=== PATIENT | female | born 1995 | race Asian ===

== ENCOUNTER 2016-09-16 16:28 | Emergency (ER) | payer OTHER ==
[~2016-09-16] VITALS: Ht 170.2 cm; Wt 56.7 kg
[2016-09-16 16:30] VITALS: TEMP 98.8
[2016-09-16 17:18] LABS: PLATELET COUNT 310 K/uL (152-353)
[2016-09-16 17:24] LABS: POTASSIUM 2.9 mmol/L (3.6-5.2); SODIUM 131 mmol/L (136-145)
[2016-09-16 17:26] VITALS: BP 112/72
== END 2016-09-16 17:27 | disposition home or self-care (01) ==
LOC: ED 16:28
PROVIDERS: Family Medicine
DX: K52.9 Noninfective gastroenteritis and colitis, unspecified (principal); O21.0 Mild hyperemesis gravidarum; E87.6 Hypokalemia
CPT/HCPCS: 80053; 81000; 81025; 85027; 99283

== ENCOUNTER 2016-09-18 17:03 | Emergency (ER) | payer OTHER ==
[~2016-09-18] VITALS: Ht 175.3 cm; Wt 57.6 kg
[2016-09-18 19:03] LABS: SODIUM 133 mmol/L (136-145)
[2016-09-18 19:06] LABS: PLATELET COUNT 305 K/uL (152-353)
[2016-09-18 19:58] VITALS: BP 115/75; TEMP 98.1
== END 2016-09-18 19:58 | disposition home or self-care (01) ==
LOC: ED 17:03
DX: O21.0 Mild hyperemesis gravidarum (principal); E86.9 Volume depletion, unspecified; E86.0 Dehydration; R10.9 Unspecified abdominal pain
CPT/HCPCS: 80053; 85027; 96360; 99284

== ENCOUNTER 2016-10-28 11:55 | Emergency (ER) | payer OTHER ==
[~2016-10-28] VITALS: Ht 170.2 cm; Wt 56.7 kg
[2016-10-28 13:13] LABS: PLATELET COUNT 374 K/uL (152-353)
[2016-10-28 15:21] VITALS: BP 115/68; TEMP 98.6
== END 2016-10-28 15:27 | disposition home or self-care (01) ==
LOC: ED 11:55
PROVIDERS: Emergency Medicine
DX: O34.81 Maternal care for other abnormalities of pelvic organs, first trimester (principal); Z3A.12 12 weeks gestation of pregnancy; R10.2 Pelvic and perineal pain
CPT/HCPCS: 81000; 84702; 85027; 99283

== ENCOUNTER 2017-04-20 08:30 | Outpatient (CLI) | payer OTHER | END 2017-04-20 08:43 | disposition short-term general hospital (02) | LOC: AMB 08:30 | DX: Z39.0 Encounter for care and examination of mother immediately after delivery (principal); Z37.0 Single live birth | CPT/HCPCS: A0425; A0427 ==

== ENCOUNTER 2017-09-19 13:46 | Emergency (ER) | payer OTHER ==
[~2017-09-19] VITALS: Ht 170.2 cm; Wt 56.7 kg
[2017-09-19 14:15] VITALS: TEMP 97.5
[2017-09-19 15:40] LABS: PLATELET COUNT 298 K/uL (152-353); POTASSIUM 3.6 mmol/L (3.6-5.2)
[2017-09-19 16:54] VITALS: BP 120/70
== END 2017-09-19 16:54 | disposition home or self-care (01) ==
LOC: ED 13:46
PROVIDERS: Family Medicine
DX: R31.9 Hematuria, unspecified (principal)
CPT/HCPCS: 80053; 81000; 81025; 85027; 85610; 99283

== ENCOUNTER 2018-07-04 19:29 | Emergency (ER) | payer OTHER ==
[~2018-07-04] VITALS: Ht 170.2 cm; Wt 49.0 kg
[2018-07-04 21:12] VITALS: BP 108/79; TEMP 99
== END 2018-07-04 21:13 | disposition home or self-care (01) ==
LOC: ED 19:29
DX: O21.0 Mild hyperemesis gravidarum (principal)
CPT/HCPCS: 81025; 96372; 99283; J2550

== ENCOUNTER 2020-04-14 00:24 | Emergency (ER) | payer OTHER ==
[~2020-04-14] VITALS: Ht 170.2 cm; Wt 59.0 kg
[2020-04-14 02:16] LABS: PLATELET COUNT 299 K/uL (152-353)
[2020-04-14 02:40] LABS: POTASSIUM 3.7 mmol/L (3.6-5.2)
[2020-04-14 04:49] VITALS: BP 111/69; TEMP 98.6
== END 2020-04-14 04:58 | disposition home or self-care (01) ==
LOC: ED 00:24
PROVIDERS: Emergency Medicine Emergency Medical Services
DX: R55 Syncope and collapse (principal); Z3A.12 12 weeks gestation of pregnancy; J40 Bronchitis, not specified as acute or chronic; Z03.818 Encounter for observation for suspected exposure to other biological agents ruled out; F17.210 Nicotine dependence, cigarettes, uncomplicated
CPT/HCPCS: 36415; 80053; 80307; 81000; 81025; 84702; 85027; 87635; 93005; 96360; 96361; 96365; 99284; J0696; U0003

== ENCOUNTER 2022-06-18 18:03 | Emergency (ER) | payer OTHER ==
[~2022-06-18] VITALS: Ht 167.6 cm; Wt 59.0 kg
[2022-06-18 18:08] VITALS: BP 117/65; TEMP 99
== END 2022-06-18 19:36 | disposition home or self-care (01) ==
LOC: ED 18:03
DX: K02.9 Dental caries, unspecified (principal); M26.621 Arthralgia of right temporomandibular joint; K05.30 Chronic periodontitis, unspecified; F17.210 Nicotine dependence, cigarettes, uncomplicated
CPT/HCPCS: 96372; 99283; J1885